=== PATIENT | male | born 1960 | race Caucasian/White ===

== ENCOUNTER 2017-10-16 18:48 | Inpatient (IN) | payer BC ==
[2017-10-16] MEDS: IPRATROPIUM (NEB) 0.5 MG/2.5 ML AMP INH (19:44)
[2017-10-16] MEDS: ALBUTEROL 0.5% (NEB) 2.5 MG/0.5 ML AMP INH (19:44)
[2017-10-16] MEDS: METHYLPREDNISOLONE 125 MG INJ IV (19:49)
[2017-10-16 19:56] LABS: ADD MAN DIFF? NO
[2017-10-16 19:58] LABS: WHITE BLOOD COUNT 12.6 10^3/ul (4.8-10.8)
[2017-10-16 19:58] LABS: BASOPHIL # 0.1 10^3/ul (0.0-0.1); BASOPHILS % 0.6 % (0.0-2.0); EOSINOPHILS # 0.2 10^3/ul (0.0-0.5); EOSINOPHILS % 1.7 % (0.0-7.0); HEMOGLOBIN 13.3 g/dl (14.0-18.0); LYMPHOCYTES # 2.4 10^3/ul (0.8-2.9); LYMPHOCYTES % 18.7 % (15.0-51.0); MEAN CORPUSCULAR HEMOGLOBIN 28.7 pg (29.0-33.0); MEAN CORPUSCULAR HGB CONC 33.3 g/dl (32.0-37.0); MEAN CORPUSCULAR VOLUME 86.2 fl (82.0-101.0); MEAN PLATELET VOLUME 10.2 fl (7.4-10.4); MONOCYTES % 8.2 % (0.0-11.0); NEUTROPHIL # 8.8 10^3/ul (1.6-7.5); NEUTROPHILS % 69.5 % (39.0-77.0); PLATELET COUNT 235 10^3/UL (140-415); RED BLOOD COUNT 4.64 10^6/ul (4.70-6.10)
[2017-10-16] MEDS: SODIUM CHLORIDE 0.9% 1L BAG IV* (20:04)
[2017-10-16 20:16] LABS: ANION GAP 20 (8-16); BLOOD UREA NITROGEN 16 mg/dl (7-20); CALCIUM 8.9 mg/dl (8.4-10.2); CARBON DIOXIDE 22 mmol/L (21-31); CHLORIDE 105 mmol/L (97-110); CREATININE 1.96 mg/dl (0.61-1.24); GLUCOSE 209 mg/dl (70-220); POTASSIUM 4.3 mmol/L (3.5-5.1); SODIUM 143 mmol/L (135-144)
[2017-10-16] MEDS: morphine 4 MG/ML VIAL IV (20:20)
[2017-10-16 20:30] LABS: TROPONIN-I < 0.012 ng/ml (0.00-0.12)
[2017-10-16 21:07] LABS: LACTIC ACID 3.2 mmol/L (0.5-2.0)
[2017-10-16 21:14] LABS: B-TYPE NATRIURETIC PEPTIDE 292 PG/ML (0-125)
[2017-10-16] MEDS: CEFEPIME 2GM/50 ML (PMX) 50 ML IVPB (21:30)
[2017-10-16 21:34] LABS: URINE BLOOD (Dip) POC Negative (NEGATIVE); URINE GLUCOSE (Dip) POC Negative (NEGATIVE); URINE KETONES (Dip) POC 1+ (NEGATIVE); URINE LEUKOCYTE EST (Dip) POC Negative (NEGATIVE); URINE NITRITE (Dip) POC Negative (NEGATIVE); URINE TOTAL PROTEIN POC 2+ (NEGATIVE)
[2017-10-16 21:34] LABS: URINE PH (Dip) POC 5.5 (5.0-8.5)
[2017-10-16] MEDS: FENTAnyl 50 MCG/ML VIAL IV (22:06)
[2017-10-16] MEDS ORDERED: ACETAMINOPHEN 325 MG TAB PO (22:30)
[2017-10-16] MEDS ORDERED: metroNIDAZOLE 500 MG/NS (PMX) 100 ML IVPB (22:30)
[2017-10-16] MEDS ORDERED: BISACODYL 10 MG SUPP PR (22:30)
[2017-10-16] MEDS ORDERED: DOCUSATE SODIUM 100 MG CAP PO (22:30)
[2017-10-16 22:38] LABS: LACTIC ACID 3.3 mmol/L (0.5-2.0)
[2017-10-16] MEDS ORDERED: DEXTROSE 50% 50 ML SYRINGE IV ×2 (23:00)
[2017-10-16] MEDS ORDERED: VANCOMYCIN IV PER PHARMACY XX (23:00)
[2017-10-16] MEDS ORDERED: GLUCAGON 1 MG INJ IM (23:00)
[2017-10-16] MEDS: SOD CHLORIDE 0.9% 1,000 ML IV (23:00)
[2017-10-16] MEDS: ONDANSETRON 4 MG INJ IV (23:00)
[2017-10-16] MEDS ORDERED: GLUCOSE GEL 15 GRAM TUBE BUCCAL (23:00)
[2017-10-16] MEDS ORDERED: NICOTINE POLACRILEX 4 MG GUM BUCCAL (23:00)
[2017-10-16] MEDS ORDERED: GLUCOSE GEL 15 GRAM TUBE PO ×2 (23:00)
[2017-10-16] MEDS: HYDROmorphONE 0.5 MG/0.5 ML SYG IV (23:01)
[2017-10-16] MEDS: VANCOMYCIN 1 GM (PMX) 250 ML IVPB (23:01)
[2017-10-16] MEDS ORDERED: DIPHENHYDRAMINE 50 MG INJ (23:03)
[2017-10-16] MEDS: ALBUTEROL/IPRATROPIUM (NEB) 3 ML AMP HHN (23:15)
[2017-10-17] MEDS: LORAZEPAM 2 MG INJ IV ×2 (00:01→22:04)
[2017-10-17] MEDS: PIPER-TAZO 3.375 GM IV (PMX) 100 ML IVPB ×2 (00:22→05:36)
[2017-10-17] MEDS: AZITHROMYCIN 500MG/NS (PMX) 250 ML IVPB ×2 (01:00→23:38)
[2017-10-17 01:14] LABS: LACTIC ACID 3.7 mmol/L (0.5-2.0)
[2017-10-17] MEDS: ACCU-CHEK XX (02:38)
[2017-10-17] MEDS: SOD CHLORIDE 0.9% 1,000 ML IV ×5 (03:20→22:26)
[2017-10-17] MEDS: INSULIN ASPART [NOVOLOG] 3 ML PEN SC ×5 (03:28→18:18)
[2017-10-17] MEDS: INSULIN GLARGINE [LANtus] 3 ML PEN SC ×3 (03:29→20:27)
[2017-10-17] MEDS: metroNIDAZOLE 500 MG/NS (PMX) 100 ML IVPB (05:36)
[2017-10-17] MEDS ORDERED: CEFEPIME 2GM/50 ML (PMX) 50 ML IVPB (06:00)
[2017-10-17] MEDS ORDERED: AZTREONAM 2 GM in SOD CHLORIDE 0.9% 100 ML IVPB (06:00)
[2017-10-17] MEDS ORDERED: CIPROFLOXACIN 400MG/D5W 200 ML IVPB (06:00)
[2017-10-17 06:16] LABS: ADD MAN DIFF? NO
[2017-10-17 06:21] LABS: ABNORMAL IP MESSAGE 1; BASOPHILS % 0.1 % (0.0-2.0); HEMATOCRIT 35.2 % (42.0-52.0); HEMOGLOBIN 11.7 g/dl (14.0-18.0); LYMPHOCYTES # 0.4 10^3/ul (0.8-2.9); LYMPHOCYTES % 2.2 % (15.0-51.0); MEAN CORPUSCULAR HEMOGLOBIN 29.1 pg (29.0-33.0); MEAN CORPUSCULAR HGB CONC 33.2 g/dl (32.0-37.0); MEAN CORPUSCULAR VOLUME 87.6 fl (82.0-101.0); MONOCYTE # 0.4 10^3/ul (0.3-0.9); MONOCYTES % 2.4 % (0.0-11.0); NEUTROPHIL # 14.8 10^3/ul (1.6-7.5); PLATELET COUNT 209 10^3/UL (140-415); POSITIVE DIFF @See below; RED BLOOD COUNT 4.02 10^6/ul (4.70-6.10); RED CELL DISTRIBUTION WIDTH 15.7 % (11.5-14.5)
[2017-10-17 06:21] LABS: WHITE BLOOD COUNT 15.8 10^3/ul (4.8-10.8)
[2017-10-17 06:44] LABS: ALANINE AMINOTRANSFERASE 21 IU/L (13-69); ALBUMIN 3.4 g/dl (3.3-4.9); ALKALINE PHOSPHATASE 54 IU/L (42-121); ANION GAP 18 (8-16); ASPARTATE AMINO TRANSFERASE 20 IU/L (15-46); BILIRUBIN,INDIRECT 0.2 mg/dl (0-1.1); BILIRUBIN,TOTAL 0.2 mg/dl (0.2-1.3); BLOOD UREA NITROGEN 21 mg/dl (7-20); CALCIUM 8.2 mg/dl (8.4-10.2); CARBON DIOXIDE 20 mmol/L (21-31); CHLORIDE 110 mmol/L (97-110); CHOL/HDL RATIO 5.9 RATIO; CHOLESTEROL 195 mg/dl (100-200); GLUCOSE 338 mg/dl (70-220); HDL CHOLESTEROL 33 mg/dl (28-71); LDL CHOLESTEROL,CALCULATED 130 mg/dl; POTASSIUM 5.4 mmol/L (3.5-5.1); SODIUM 143 mmol/L (135-144); TRIGLYCERIDES 162 mg/dl (0-149)
[2017-10-17] MEDS: INSULIN ASPART [NOVOLOG] 3 ML PEN IV (06:45)
[2017-10-17 06:50] LABS: HEMOGLOBIN A1C 7.9 % (0-5.9)
[2017-10-17] MEDS ORDERED: INSULIN ASPART [NOVOLOG] 3 ML PEN SC ×5 (07:55→17:55)
[2017-10-17] MEDS: SOD CHLORIDE 0.9% 500 ML IV (08:15)
[2017-10-17] MEDS: FAMOTIDINE 20 MG TAB PO ×2 (08:50→20:20)
[2017-10-17] MEDS: SALMETEROL/FLUTICASONE 250/50 INHA INH ×2 (08:54→20:19)
[2017-10-17] MEDS: NA POLYST SULFON 15 GM/60 ML BTL PO (08:54)
[2017-10-17] MEDS: NICOTINE (21 MG/24 HR) PATCH TRANSDERM (08:55)
[2017-10-17] MEDS: HYDROCODONE/APAP (5/325) TAB PO (12:03)
[2017-10-17] MEDS: GUAIFENESIN/CODEINE 5ML CUP PO ×2 (12:03→20:36)
[2017-10-17] MEDS: METHYLPREDNISOLONE 125 MG INJ IV ×3 (12:07→23:39)
[2017-10-17] MEDS: ALBUTEROL/IPRATROPIUM (NEB) 3 ML AMP HHN ×2 (13:48→16:41)
[2017-10-17] MEDS: MEROPENEM 1 GM/50ML(PMX) 50 ML IVPB ×2 (14:36→21:56)
[2017-10-17] MEDS: LINEZOLID 600 MG/D5W (PMX) 300 ML IVPB (18:09)
[2017-10-17 18:50] LABS: ANION GAP 16 (8-16); BLOOD UREA NITROGEN 19 mg/dl (7-20); CALCIUM 8.1 mg/dl (8.4-10.2); CARBON DIOXIDE 19 mmol/L (21-31); CHLORIDE 108 mmol/L (97-110); GLUCOSE 163 mg/dl (70-220); POTASSIUM 4.3 mmol/L (3.5-5.1); SODIUM 139 mmol/L (135-144)
[2017-10-17] MEDS ORDERED: VANCOMYCIN 1.5 GM in SOD CHLORIDE 0.9% 250 ML IVPB (20:00)
[2017-10-17] MEDS: LEVALBUTEROL (NEB) 0.63 MG/3 ML AMP HHN (20:09)
[2017-10-17] MEDS: MONTELUKAST 10 MG TAB PO (20:20)
[2017-10-17] MEDS: METOPROLOL 25 MG TAB PO (20:20)
[2017-10-17] MEDS: HYDROmorphONE 0.5 MG/0.5 ML SYG IV (20:22)
[2017-10-18] MEDS: LEVALBUTEROL (NEB) 0.63 MG/3 ML AMP HHN ×6 (01:00→20:37)
[2017-10-18] MEDS: LINEZOLID 600 MG/D5W (PMX) 300 ML IVPB ×2 (01:07→08:16)
[2017-10-18] MEDS: ACCU-CHEK XX (01:13)
[2017-10-18] MEDS: SOD CHLORIDE 0.9% 1,000 ML IV ×2 (02:52→05:52)
[2017-10-18] MEDS: MEROPENEM 1 GM/50ML(PMX) 50 ML IVPB (05:52)
[2017-10-18] MEDS: METHYLPREDNISOLONE 125 MG INJ IV ×4 (05:52→21:01)
[2017-10-18 07:45] LABS: ADD MAN DIFF? NO
[2017-10-18 07:53] LABS: WHITE BLOOD COUNT 18.1 10^3/ul (4.8-10.8)
[2017-10-18 07:53] LABS: BASOPHILS % 0.1 % (0.0-2.0); HEMATOCRIT 33.6 % (42.0-52.0); HEMOGLOBIN 11.1 g/dl (14.0-18.0); LYMPHOCYTES # 0.8 10^3/ul (0.8-2.9); LYMPHOCYTES % 4.2 % (15.0-51.0); MEAN CORPUSCULAR HEMOGLOBIN 28.6 pg (29.0-33.0); MEAN CORPUSCULAR VOLUME 86.6 fl (82.0-101.0); MEAN PLATELET VOLUME 10.3 fl (7.4-10.4); MONOCYTE # 0.3 10^3/ul (0.3-0.9); MONOCYTES % 1.7 % (0.0-11.0); NEUTROPHIL # 16.8 10^3/ul (1.6-7.5); NEUTROPHILS % 92.8 % (39.0-77.0); PLATELET COUNT 191 10^3/UL (140-415); RED BLOOD COUNT 3.88 10^6/ul (4.70-6.10); RED CELL DISTRIBUTION WIDTH 14.8 % (11.5-14.5)
[2017-10-18 08:12] LABS: ALANINE AMINOTRANSFERASE 28 IU/L (13-69); ALBUMIN 3.3 g/dl (3.3-4.9); ALBUMIN/GLOBULIN RATIO 1.22; ALKALINE PHOSPHATASE 48 IU/L (42-121); ANION GAP 13 (8-16); ASPARTATE AMINO TRANSFERASE 18 IU/L (15-46); BILIRUBIN,INDIRECT 0.1 mg/dl (0-1.1); BILIRUBIN,TOTAL 0.1 mg/dl (0.2-1.3); BLOOD UREA NITROGEN 21 mg/dl (7-20); CALCIUM 8.4 mg/dl (8.4-10.2); CARBON DIOXIDE 25 mmol/L (21-31); CHLORIDE 109 mmol/L (97-110); CREATININE 0.81 mg/dl (0.61-1.24); GLUCOSE 197 mg/dl (70-220); POTASSIUM 4.3 mmol/L (3.5-5.1); SODIUM 143 mmol/L (135-144)
[2017-10-18] MEDS: FAMOTIDINE 20 MG TAB PO ×2 (08:15→21:02)
[2017-10-18] MEDS: SALMETEROL/FLUTICASONE 250/50 INHA INH ×2 (08:15→21:01)
[2017-10-18] MEDS: METOPROLOL 25 MG TAB PO (08:17)
[2017-10-18] MEDS: INSULIN GLARGINE [LANtus] 3 ML PEN SC ×2 (08:19→21:21)
[2017-10-18] MEDS: INSULIN ASPART [NOVOLOG] 3 ML PEN SC ×4 (08:20→22:01)
[2017-10-18] MEDS: NICOTINE (21 MG/24 HR) PATCH TRANSDERM (08:24)
[2017-10-18] MEDS: HYDROmorphONE 0.5 MG/0.5 ML SYG IV ×2 (08:36→13:22)
[2017-10-18] MEDS: GUAIFENESIN LA 600 MG TABSR PO ×2 (13:21→21:02)
[2017-10-18] MEDS: LEVOFLOXACIN 750 MG TABLET PO (13:22)
[2017-10-18] MEDS: AMLODIPINE 5 MG TAB PO (16:18)
[2017-10-18] MEDS: MONTELUKAST 10 MG TAB PO (21:01)
[2017-10-18] MEDS: QUETIAPINE 100 MG TAB PO (21:02)
[2017-10-18] MEDS: AZITHROMYCIN 500MG/NS (PMX) 250 ML IVPB (23:12)
[2017-10-19] MEDS: LEVALBUTEROL (NEB) 0.63 MG/3 ML AMP HHN ×3 (00:52→08:52)
[2017-10-19] MEDS: ACCU-CHEK XX (02:00)
[2017-10-19] MEDS: LEVOFLOXACIN 750 MG TABLET PO (05:23)
[2017-10-19] MEDS: METHYLPREDNISOLONE 125 MG INJ IV (05:23)
[2017-10-19] MEDS: INSULIN ASPART [NOVOLOG] 3 ML PEN SC ×4 (08:05→11:44)
[2017-10-19] MEDS: INSULIN GLARGINE [LANtus] 3 ML PEN SC (08:06)
[2017-10-19] MEDS: GUAIFENESIN LA 600 MG TABSR PO (08:07)
[2017-10-19] MEDS: FAMOTIDINE 20 MG TAB PO (08:07)
[2017-10-19] MEDS: NICOTINE (21 MG/24 HR) PATCH TRANSDERM (08:08)
[2017-10-19] MEDS: AMLODIPINE 5 MG TAB PO (08:09)
[2017-10-19] MEDS: SALMETEROL/FLUTICASONE 250/50 INHA INH (08:17)
[2017-10-19] MEDS: FLUOXETINE 20 MG CAP PO (08:21)
[2017-10-19] MEDS: predniSONE 20 MG TAB PO (11:37)
== END 2017-10-19 13:25 | disposition home health service (06) | DRG 871 ==
LOC: TEL 22:30 → E/R 18:48 → TEL 10-18 18:50
PROVIDERS: Hospitalist
DX: A41.9 Sepsis, unspecified organism (principal); J18.9 Pneumonia, unspecified organism; N17.9 Acute kidney failure, unspecified; E87.2 Acidosis; J44.0 Chronic obstructive pulmonary disease with (acute) lower respiratory infection; E86.0 Dehydration; J44.1 Chronic obstructive pulmonary disease with (acute) exacerbation; F17.210 Nicotine dependence, cigarettes, uncomplicated; E11.65 Type 2 diabetes mellitus with hyperglycemia; E78.00 Pure hypercholesterolemia, unspecified; M54.9 Dorsalgia, unspecified; I10 Essential (primary) hypertension
CPT/HCPCS: 36415; 71045; 74176; 80048; 80053; 80061; 81003; 82962; 83036; 83605; 83735; 83880; 84484; 85025; 87040; 87086; 87400; 93005; 94640; 94644; 94664; 96361; 96365; 96375; 99291-25

== ENCOUNTER 2017-10-19 20:20 | Observation (INO) | payer BC ==
[2017-10-19] MEDS: ALBUTEROL 0.5% (NEB) 2.5 MG/0.5 ML AMP INH (22:42)
[2017-10-19] MEDS: IPRATROPIUM (NEB) 0.5 MG/2.5 ML AMP INH (22:42)
[2017-10-19 23:02] LABS: ADD MAN DIFF? NO
[2017-10-19 23:05] LABS: ABNORMAL IP MESSAGE 1; BASOPHILS % 0.1 % (0.0-2.0); HEMATOCRIT 36.6 % (42.0-52.0); HEMOGLOBIN 12.3 g/dl (14.0-18.0); LYMPHOCYTES # 1.8 10^3/ul (0.8-2.9); LYMPHOCYTES % 7.6 % (15.0-51.0); MEAN CORPUSCULAR HEMOGLOBIN 28.8 pg (29.0-33.0); MEAN CORPUSCULAR HGB CONC 33.6 g/dl (32.0-37.0); MEAN CORPUSCULAR VOLUME 85.7 fl (82.0-101.0); MEAN PLATELET VOLUME 9.7 fl (7.4-10.4); MONOCYTE # 1.5 10^3/ul (0.3-0.9); MONOCYTES % 6.6 % (0.0-11.0); NEUTROPHIL # 19.2 10^3/ul (1.6-7.5); NEUTROPHILS % 83.7 % (39.0-77.0); PLATELET COUNT 234 10^3/UL (140-415); POSITIVE DIFF @See below; RED BLOOD COUNT 4.27 10^6/ul (4.70-6.10); RED CELL DISTRIBUTION WIDTH 15.3 % (11.5-14.5)
[2017-10-19 23:07] LABS: ADD UMIC NO; UR ASCORBIC ACID NEGATIVE (NEGATIVE); UR BILIRUBIN (Dip) NEGATIVE (NEGATIVE); UR BLOOD (Dip) NEGATIVE (NEGATIVE); UR CLARITY CLEAR (CLEAR); UR COLOR YELLOW (YELLOW); UR GLUCOSE (Dip) 1+ mg/dL (NEGATIVE); UR KETONES (Dip) NEGATIVE (NEGATIVE); UR LEUKOCYTE ESTERASE (Dip) NEGATIVE Leu/ul (NEGATIVE); UR NITRITE (Dip) NEGATIVE (NEGATIVE); UR SPECIFIC GRAVITY (Dip) 1.016 (1.003-1.030); UR TOTAL PROTEIN (Dip) NEGATIVE (NEGATIVE); UR UROBILINOGEN (Dip) NEGATIVE (NEGATIVE)
[2017-10-19 23:25] LABS: LACTIC ACID 1.4 mmol/L (0.5-2.0)
[2017-10-19 23:26] LABS: INR 1.02; PROTIME 13.5 Sec (11.9-14.9); PT RATIO 1.1
[2017-10-19 23:27] LABS: ALANINE AMINOTRANSFERASE 23 IU/L (13-69); ALBUMIN 3.6 g/dl (3.3-4.9); ALBUMIN/GLOBULIN RATIO 1.44; ALKALINE PHOSPHATASE 60 IU/L (42-121); ANION GAP 16 (8-16); ASPARTATE AMINO TRANSFERASE 20 IU/L (15-46); BLOOD UREA NITROGEN 25 mg/dl (7-20); CALCIUM 9.2 mg/dl (8.4-10.2); CARBON DIOXIDE 27 mmol/L (21-31); CHLORIDE 107 mmol/L (97-110); CREATININE 0.91 mg/dl (0.61-1.24); GLUCOSE 70 mg/dl (70-220); PARTIAL THROMBOPLASTIN TIME 24.9 Sec (25.0-35.0); POTASSIUM 3.6 mmol/L (3.5-5.1); SODIUM 146 mmol/L (135-144); TOTAL PROTEIN 6.1 g/dl (6.1-8.1)
[2017-10-19 23:38] LABS: TROPONIN-I < 0.012 ng/ml (0.00-0.12)
[2017-10-20] MEDS ORDERED: DOCUSATE SODIUM 100 MG CAP PO (01:00)
[2017-10-20] MEDS ORDERED: ONDANSETRON 4 MG INJ IV (01:00)
[2017-10-20] MEDS ORDERED: NACL 0.9% 3 ML SYG IV (01:00)
[2017-10-20] MEDS ORDERED: ALBUTEROL/IPRATROPIUM (NEB) 3 ML AMP NEB (01:00)
[2017-10-20] MEDS ORDERED: ACETAMINOPHEN 325 MG TAB PO (01:00)
[2017-10-20] MEDS ORDERED: VANCOMYCIN IV PER PHARMACY XX (01:00)
[2017-10-20] MEDS ORDERED: ZOLPIDEM 5 MG TAB PO (01:00)
[2017-10-20] MEDS: IPRATROPIUM (NEB) 0.5 MG/2.5 ML AMP NEB ×4 (01:00→13:00)
[2017-10-20] MEDS ORDERED: BISACODYL (EC) 5 MG TAB PO (01:00)
[2017-10-20] MEDS ORDERED: OXYCODONE/ACETAMINOPHEN (5/325) TAB PO (01:00)
[2017-10-20] MEDS ORDERED: CLINDAMYCIN 600 MG/D5W (PMX) 50 ML IVPB (01:01)
[2017-10-20] MEDS: LORAZEPAM 2 MG INJ IV (01:07)
[2017-10-20] MEDS: METHYLPREDNISOLONE 125 MG INJ IV (01:07)
[2017-10-20] MEDS: PIPER-TAZO 3.375 GM IV (PMX) 100 ML IV (01:07)
[2017-10-20 01:12] LABS: LACTIC ACID 1.8 mmol/L (0.5-2.0)
[2017-10-20] MEDS: ALBUTEROL/IPRATROPIUM (NEB) 3 ML AMP NEB ×5 (01:12→16:50)
[2017-10-20 01:19] LABS: ETHANOL < 10.0 mg/dl
[2017-10-20 01:47] LABS: AMPHETAMINE/METHAMPHETAMINE Negative (NEGATIVE); BARBITURATES Negative (NEGATIVE); BENZODIAZEPINES Negative (NEGATIVE); CANNABINOIDS Negative (NEGATIVE); COCAINE Negative (NEGATIVE); OPIATES Negative (NEGATIVE)
[2017-10-20 03:45] LABS: LACTIC ACID 2.1 mmol/L (0.5-2.0)
[2017-10-20] MEDS ORDERED: GLUCOSE GEL 15 GRAM TUBE BUCCAL (04:45)
[2017-10-20] MEDS ORDERED: GLUCOSE GEL 15 GRAM TUBE PO ×2 (04:45)
[2017-10-20] MEDS ORDERED: DEXTROSE 50% 50 ML SYRINGE IV ×2 (04:45)
[2017-10-20] MEDS ORDERED: GLUCAGON 1 MG INJ IM (04:45)
[2017-10-20] MEDS ORDERED: LORAZEPAM 2 MG INJ IV (05:00)
[2017-10-20] MEDS: SOD CHLORIDE 0.9% 1,000 ML IV (05:31)
[2017-10-20] MEDS: HYDROCODONE/APAP (5/325) TAB PO (05:36)
[2017-10-20] MEDS: AMLODIPINE 5 MG TAB PO (06:26)
[2017-10-20] MEDS: LEVOFLOXACIN 750 MG TABLET PO (06:26)
[2017-10-20] MEDS ORDERED: LINEZOLID 600 MG/D5W (PMX) 300 ML IVPB (09:00)
[2017-10-20] MEDS ORDERED: AMLODIPINE 5 MG TAB PO (09:00)
[2017-10-20] MEDS: FAMOTIDINE 20 MG TAB PO (09:13)
[2017-10-20] MEDS: predniSONE 20 MG TAB PO (09:14)
[2017-10-20] MEDS: FLUOXETINE 20 MG CAP PO (09:14)
[2017-10-20] MEDS: BENZTROPINE 1 MG TAB PO (09:14)
[2017-10-20] MEDS: INSULIN ASPART [NOVOLOG] 3 ML PEN SC ×6 (09:15→17:40)
[2017-10-20] MEDS: SALMETEROL/FLUTICASONE 250/50 INHA INH (09:16)
[2017-10-20] MEDS: ENOXAPARIN 40 MG/0.4 ML SYG SC (09:16)
[2017-10-20] MEDS: NICOTINE (7 MG/24 HR) PATCH TRANSDERM (09:16)
[2017-10-20] MEDS: OXCARBAZEPINE 300 MG TAB PO (09:17)
[2017-10-20] MEDS: GUAIFENESIN LA 600 MG TABSR PO (09:18)
[2017-10-20] MEDS ORDERED: QUETIAPINE 100 MG TAB PO (21:00)
[2017-10-20] MEDS ORDERED: MONTELUKAST 10 MG TAB PO (21:00)
[2017-10-21] MEDS ORDERED: ACCU-CHEK XX ×2 (02:00)
== END 2017-10-20 19:06 ==
LOC: E/R 20:20 → MS4 10-20 00:39
DX: J44.1 Chronic obstructive pulmonary disease with (acute) exacerbation (principal); J18.9 Pneumonia, unspecified organism; I10 Essential (primary) hypertension; F41.9 Anxiety disorder, unspecified; Z72.0 Tobacco use; Z88.1 Allergy status to other antibiotic agents; Z91.013 Allergy to seafood
CPT/HCPCS: 36415; 71045; 80053; 80306; 80307; 81003; 82962; 83605; 84484; 85025; 85610; 85730; 87040; 87086; 93005; 94640; 94644; 94664; 96374; 96375; 99285-25; G0378